=== PATIENT | male | born 1930 | race Caucasian/White ===

== ENCOUNTER 2017-01-10 12:06 | Inpatient (IN) | payer MEDICARE, OTHER ==
[2017-01-10] VITALS (11 sets, daily range): BP systolic 101–129; BP diastolic 44–72; PULSE 72–107; RESP 16–44; O2SAT 93–100
[~2017-01-10] VITALS: Ht 175.3 cm; Wt 89.5 kg
[~2017-01-10 12:06] MED LIST: ALB083NB3 INH; ALBUTEROL8GMHFA PO; ALLO100T PO; ASA325 PO; CARV12.5 PO; CLAR10T PO; FLUT12AE6 IH; GLIPIZIDE PO; LEVO750T9 PO; LOP600 PO; OMEG100020 PO; OMEP20TA86 PO; PRAV80TA PO; PRE10 PO; TAMS0.4C29 PO; TIOT18CA INH; TRAVOS OU; UBID1CAP52 PO; ZES5 PO; [UNRECOGNIZED DRUG - CODE] OD
[2017-01-10] MEDS ORDERED: Albuterol 2.5 mg/3 mL Inhalation Solution NEB ONE ×2 (12:25→13:10)
[2017-01-10] MEDS ORDERED: MethylprednisoLONE Sodium Succinate 62.5 mg/mL 2 mL Inj IVPUSH ONE (12:25)
[2017-01-10] MEDS ORDERED: Ipratropium 0.02% 0.5 mg/2.5 mL Inhalation Solution NEB ONE (12:25)
--- NOTE | 2017-01-10 12:29 | ED.REPORT ---
HPI-Dyspnea / Wheezing Date of Service Jan 10, 2017 ED Provider: Jay Emanuel MD This is an 86 year old male with a history of HTN, DM, CABG presenting to the emergency department complaining of cough that began 2 days ago. Reports progressively worsening productive cough with clear sputum that is associated with worsening shortness of breath and back pain. He denies lower extremity swelling, chest pain, fever, chills, diaphoresis, nausea, or vomiting. Pt stopped taking doxazosin yesterday. Nursing Notes Stated Complaint: CONGESTION,HARD TO BREATH Chief Complaint: Respiratory Distress Nursing Notes Reviewed: Yes ([employer], [employer] not reconciled) Allergies: Coded Allergies: No Known Allergies (Verified , 01/10/17) Scheduled Albuterol-Expunged Drug, Do Not Renew! (Albuterol-Expunged Drug, Do Not Renew!) 90 Mcg Puff 2 PUFF PO Q2HP Albuterol-Expunged Drug, Do Not Renew! (Albuterol-Expunged Drug, Do Not Renew!) 2.5 Mg/3 Ml Nebu 3 ML INH Q4H Allopurinol-Expunged Drug, Do Not Renew! (Allopurinol-Expunged Drug, Do Not Renew!) 100 Mg Tablet 100 MG PO BID Aspirin-Expunged Drug, Do Not Renew! (Aspirin-Expunged Drug, Do Not Renew!) 325 Mg Tablet 325 MG PO DAILY Carvedilol-Expunged Drug, Do Not Renew! (Carvedilol-Expunged Drug, Do Not Renew! ) 12.5 Mg Tablet 12.5 MG PO BID Dorzolamide-Expunged Drug, Do Not Renew! (Trusopt 2%-Expunged Drug, Do Not Renew !) 10 Ml Bottle 1 DROP OD BID RIGHT EYE Flutic/Salmet-Expunged Drug, Do Not Renew! (Advair 230/21-Expunged Drug, Do Not Renew!) 12 Gm Aer.w.adap 12 GM IH PRN Gemfibrozil-Expunged Drug, Do Not Renew! (Lopid-Expunged Drug, Do Not Renew!) 600 Mg Tablet 600 MG PO DAILY Levofloxacin-Expunged Drug, Do Not Renew! (Levaquin-Expunged Drug, Do Not Renew! ) 750 Mg Tablet 750 MG PO DAILY Lisinopril-Expunged Drug, Do Not Renew! (Lisinopril-Expunged Drug, Do Not Renew! ) 5 Mg Tablet 2.5 MG PO BID Loratadine-Expunged Drug, Do Not Renew! (Loratadine-Expunged Drug, Do Not Renew! ) 10 Mg Tablet 10 MG PO DAILY [place]-3/Dha/Epa/Fish Oil-Expunged Drug, Do No (Fish Oil 1,000 Mg-Expunged Drug, Do Not Renew) 1 Each Capsule.dr 1 EACH PO DAILY Omeprazole-Expunged Drug, Do Not Renew! (Omeprazole-Expunged Drug, Do Not Renew! ) 20 Mg Tablet.dr 20 MG PO BID Pravastatin -Expunged Drug, Do Not Renew! (Pravachol-Expunged Drug, Do Not Renew !) 80 Mg Tablet 80 MG PO HS PredniSONE-Expunged Drug, Do Not Renew! (PredniSONE-Expunged Drug, Do Not Renew! ) 10 Mg Tab 10-40 MG PO DAILY TAKE WITH FOOD. Take 40mg by mouth daily for 3 days, then 20mg by mouth for 3 days, then 10mg by mouth daily for 2 days then stop. Tamsulosin-Expunged Drug, Do Not Renew! (Tamsulosin-Expunged Drug, Do Not Renew! ) 0.4 Mg Cap.sr.24h 0.4 MG PO BID Tiotropium Br-Expunged Drug, Do Not Renew! (Spiriva-Expunged Drug, Do Not Renew! ) 18 Mcg/Puff Pack 1 PUFF INH DAILY INHALE 1 CAPSULE Travoprost-Expunged Drug, Do Not Renew! (Travatan 0.004%-Expunged Drug, Do Not Renew!) 2.5 Ml Drops 1 GTT OU DAILY Ubidecarenone/Vit E Acetate (Co Q-10 100 Mg Softgel) 1 Each Capsule 1 EACH PO BID glipiZIDE-Expunged Drug, Do Not Renew! (glipiZIDE-Expunged Drug, Do Not Renew!) 5 Mg Tablet 2.5 MG PO BID General Time Seen by MD: 12:19 Chief Complaint Shortness of breath Hx Obtained From: Patient Arrived By: Walk-in Sudden in Onset?: Yes Onset Occurred: 2 days ago Symptom Duration: Since onset Severity: Current: No pain currently Pertinent Negative: Pt denies other symptoms Recent Healthcare: No recent doctor visit, No recent hospitalization Similar Sx Previous: No Risk Factors CAD Risk Stratification Diabetes mellitus Hypertension Risk factors reviewed Past Medical History Past Medical History History of coronary artery disease, inferior [place] 1986 and subsequent failed emergent PCI History of lung cancer diagnosis. 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 Neurologic: Denies: Dizziness, Headache, Lightheaded, Numbness Physical Exam Initial Vital Signs Vital Signs (First) Date Time Temp Pulse Resp B/P Pulse Ox O2 Delivery O2 Flow Rate FiO2 01/10/17 12:09 36.4 107 44 101/62 93 Room Air 01/10/17 13:15 35 01/10/17 13:57 2 Initial VS: Reviewed, Vital signs abnormal Head / Eyes: Atraumatic, Normocephalic, PERRL ENT: Mucous membranes moist, Conjunctiva normal, No scleral icterus Abdomen / GI: Soft, Non-tender, No guarding, No rebound, No distention Skin: Warm, Dry Neurologic: Alert, Oriented, Nonfocal Psychiatric: Mood/affect normal, Behavior normal, Normal thought content General/Constitutional: Awake, Alert Slightly cyanotic Neck: Atraumatic, Supple, No meningismus, Full range of motion, No swelling, Non-tender, No masses Resp Distress / Stridor: Positive: Resp distress moderate Diminished Breath Sounds: Positive: Decreased L Wheezing / Retractions: Positive: Wheeze insp/exp diffuse Cardiovascular: Heart rate NL, Regular rhythm, Heart sounds NL, Peripheral circulation NL Interpretation & Diagnostics VENOUS BLOOD GAS REPORT pH 7.353 pCO2 50 indicative of mild hypercapnia (new c/w prior gas) pO2 21.7 cHCO3 27.2 cBase 1.3 Lab Results Interpretation Result Diagram: 01/10/17 1310 01/10/17 1310 Test 01/10/17 12:25 01/10/17 13:10 Urine Color Yellow (YELLOW) Urine Appearance Hazy (CLEAR,HAZY) Urine pH 5.5 (5.0-8.0) Urine Specific [place] 1.025 (1.003-1.035) Urine Protein 30mg/dL (NEG,TRACE) Urine Glucose (UA) Negativemg/dL (NEGATIVE) Urine Ketones Negativemg/dL (NEGATIVE) Urine Occult Blood Large (NEGATIVE) Urine Nitrite Negative (NEGATIVE) Urine Bilirubin Negative (NEGATIVE) Urine Urobilinogen Normalmg/dL (NORMAL) Urine Leukocyte Esterase Trace (NEGATIVE) Urine RBC 3-10/hpf (0-2) Urine WBC 0-5/hpf (0-5) Urine Epithelial Cells None/hpf (NONE-MOD) Urine Crystals None seen (NONE SEEN) Urine Bacteria Few/hpf (NONE-FEW) Urine Hyaline Casts None/lpf (NONE) Urine Granular Casts None seen (NONE SEEN) Urine Waxy Casts None seen (NONE SEEN) Urine Red Blood Cell Casts None seen (NONE SEEN) Urine White Blood Cell Casts None seen (NONE SEEN) Urine Mucus None seen (None Seen) Urine Trichomonas None seen (NONE SEEN) Urine Yeast None (NONE SEEN) Urinalysis Comment None Urine Culture Reflexed Indicated White Blood Count 8.4th/mm3 (3.8-10.1) Red Blood Count 4.49mil/mm3 (4.40-5.80) Hemoglobin 13.9g/dL (13.8-17.2) Hematocrit 42.5% (41.0-50.0) Mean Corpuscular Volume 94.7fL (81-100) Mean Corpuscular Hemoglobin 31.0pg (27.0-35.0) Mean Corpuscular Hemoglobin Concent 32.7% (32.0-37.0) Red Cell Distribution Width 12.7% (12.3-15.4) Platelet Count 171bil/L (150-400) Neutrophils (%) (Auto) 82.6% (40-74) Lymphocytes (%) (Auto) 8.1% (14-46) Monocytes (%) (Auto) 8.7% (4-12) Eosinophils (%) (Auto) 0.4% (0-5) Basophils (%) (Auto) 0.1% (0-3) Prothrombin Time 11.4sec (8.1-12.5) Prothromb Time International Ratio 1.06ratio D-Dimer 1.0mg/L (<0.50) Sodium Level 136mEq/L (134-144) Potassium Level 4.6mEq/L (3.5-5.2) Chloride Level 98mEq/L (97-108) Carbon Dioxide Level 23mmol/L (18-29) Blood Urea Nitrogen 24mg/dL (8-27) Creatinine 1.35mg/dL (0.76-1.27) Estimat Glomerular Filtration Rate 53mL/min (>59) Glucose Level 190mg/dL (60-99) Lactic Acid Level 1.0mmol/L (0.4-2.0) Calcium Level 9.1mg/dL (8.5-10.1) Magnesium Level 1.7mg/dL (1.6-2.6) Total Bilirubin 0.6mg/dL (0.0-1.2) Aspartate Amino Transf (AST/SGOT) 16U/L (0-50) Alanine Aminotransferase (ALT/SGPT) 13U/L (0-44) Alkaline Phosphatase 78U/L (25-160) Troponin T < 0.010ug/L (0.0-0.011) Pro-B-Type Natriuretic Peptide 933.7pg/mL (0-486) Total Protein 7.3g/dL (6.4-8.4) Albumin 3.4g/dL (3.4-5.0) Lab Results Interpretation: C normal CMP mild renal insufficiency Troponin negative D-dimer marginally elevated, Dr. Walton normal ECG Interpretation ECG Interpretation: EKG demonstrates a sinus tachycardia at a rate of 103, there are Q waves present inferiorly that are present and unchanged from an EKG dated March 2014, there is a right bundle branch block, morphology unchanged from 2013 Time: 12:32 Interpreted by: ED physician X-Ray Chest Interpretation Chest Xray Interpretation: IMPRESSION: Stable post surgical changes related to left pneumonectomy. Dictated by: Eduin Mustafa M.D. on 01/10/2017 at 13:33 Approved by: Eduin Mustafa M.D. on 01/10/2017 at 13:38 Re-Eval/Medical Decision Med Decision/Clinical Course This is an 86-year-old with COPD, prior history of heart disease and lung cancer and ex heavy smoker presents with acute shortness of breath. He describes respiratory symptoms over the past 3 days including increasing cough and worsening shortness of breath. He arrives quite dyspneic with audible bronchospasm and decreased air movement with a respiratory rate in the 40s. He is not Febrile, he is not hypoxic. The patient received albuterol, Atrovent and steroids but remained dyspneic. A venous blood gas revealed a CO2 of 50, increased from his previous gas in the 30s-the patient's to breathing the 40s-70s then started on BiPAP, received additional albuterol and Atrovent, and made marked improvement with air movement , and work of breathing. He responded so well he asked to have discontinued, and this was done as a hospitalist or interviewing the patient. Chest x-ray is negative for jaime infiltrate, blood work is unrevealing as far. The patient does have marginally elevated d-dimer, but we are unable to obtain a antecubital IV. An ultrasound of both legs is negative for DVT, and in the meantime the patient responded to therapy with nebulizers. His clinical history this argues strongly for COPD exacerbation, his response to therapy argues strongly against for COPD exacerbation and I think that makes PE unlikely. Patient is being admitted for continued management. The patient also self caths, satting recent Muir discontinued, but given his level dyspnea and request for cath-a Muir is at least temporarily been placed. Urine is pending Source of Hx: Old records Re-Evaluation/Progress #1: Time of Eval: 12:55 )( Re-Eval Resp / Chest: Moderate wheezing Re-Evaluation/Progress Note: Flank discomfort is persistent Re-Evaluation/Progress #2: Time of Eval: 14:01 Re-Evaluation/Progress Note: Improved with BIPAP, discussed plan for admission, all questions addressed Re-Evaluation/Progress #3: Time of Eval: 15:00 Re-Evaluation/Progress Note: Much improved, distress resolved, we will trial off BiPAP Airmovement also improved Consultation : Referral / Consult Name: Sofia Brown MD Consulted With: Hospitalist Call Returned at: 14:09 Director Of Software Engineering: Accepts admit Differential Diagnosis: Positive: COPD exacerbation, Negative: Acute coronary syndrome, Dysrhythmia, Hyperventilation, Pericarditis, Pneumonia, Pneumothorax, Pulmonary embolism Counseled Regarding: Diagnosis, Lab results, Need for follow-up, Need for admission Discharge & Departure Impression: Primary Impression: COPD exacerbation Disposition: ADMITTED TO HOSPITAL Discharge Condition All VS Reviewed: Yes Condition: Stable Referrals: Collins Call MD (PCP) Crit Care Except Billable Proc Time Spent: 30-74 minutes Services Performed: Patient management by me, Time spent at bedside, Reviewing test results, Reviewing imaging, Discussing patient care, Documentation in record, Time with fam/surrogate Scribe Attestation Portions of this note were transcribed by Margarita Schafer. I, Dr. Emanuel personally performed the history, physical exam and medical decision-making; I reviewed and confirmed the accuracy of the information in the transcribed note. Signed by: Margarita Schafer. 01/10/2017, 15:00. Jay Emanuel MD Jan 10, 2017 12:29 MARGARITA SCHAFER Jan 10, 2017 12:37
--- NOTE | 2017-01-10 13:21 | ABG ---
DateTimeAnalyzed 13:17:00 -_ pH ____7.353 - pCO2 ___50.2__ -mmHg pO2 ___21.7__ -mmHg HCO3- ___27.2__ -mmol/L ABE ____1.3__ -mmol/L tHb ___14.3__ -g/dL O2Hb ___35.1__ -% COHb ____1.5__ -% MetHb ____1.0__ -% sO2 ___36.0__ -% FIO2 ___28.0__ -% Drawn By jmw - Date/Time Notified____ 13:20:00 -_ Spontaneous_RR ___27.0__ -b/min Liter_Flow ____2.0__ -L/min Oxygen Device 1 NASAL CANULA - Notified By JMW - Notified Whom DR ALEJANDRA - B 765 -mmHg tO2 ____7.0__ -Vol% Miguel test N/A -
[2017-01-10 13:32] LABS: BASOPHILS % (AUTO) 0.1 % (0-3); EOSINOPHILS % (AUTO) 0.4 % (0-5); MONOCYTES % (AUTO) 8.7 % (4-12); Mean Corpuscular Volume 94.7 fL (81-100); NEUTROPHILS % (AUTO) 82.6 % (40-74); Platelet Count 171 bil/L (150-400)
[2017-01-10 13:40] LABS: INR 1.06 ratio
--- NOTE | 2017-01-10 13:40 | DRSVH ---
PROCEDURE: X-RAY CHEST ONE VIEW, PORTABLE ([id number]) INDICATIONS: Shortness of breath TECHNIQUE: One view of the chest was acquired. COMPARISON: [facility], CR, CHEST 2VW, 01/11/2013, 7:50. [facility], CT, PE STUDY ( CTA CHEST), 04/19/2008, 10:58. [facility], CR, CHEST 1VW (PORTABLE), 01/10/2013, 10:55. FINDINGS: Surgical changes and devices: Sternotomy and left pneumonectomy. Lungs and pleura: Left pneumonectomy changes are stable. Right lung is clear. No pleural effusions o r pneumothorax. Mediastinum: Mediastinal contours appear normal. Heart size is normal. Bones and chest wall: No suspicious bony lesions. Overlying soft tissues appear unremarkable. IMPRESSION: Stable post surgical changes related to left pneumonectomy. Dictated by: Eduin Mustafa M.D. on 01/10/2017 at 13:33 Approved by: Eduin Mustafa M.D. on 01/10/2017 at 13:38
[2017-01-10] MEDS ORDERED: Lidocaine 2% 5 mL Urojet Topical Jelly Syringe TOPICAL ONE ×2 (13:45→14:00)
[2017-01-10 13:50] LABS: TROPONIN T < 0.010 ug/L (0.0-0.011)
[2017-01-10 13:59] LABS: Magnesium 1.7 mg/dL (1.6-2.6)
[2017-01-10] MEDS ORDERED: Lidocaine 2% 6mL Topical Jelly TOPICAL ONE (14:05)
[2017-01-10 14:57] LABS: APPEARANCE,URINE HAZY (CLEAR,HAZY); COLOR,URINE YELLOW (YELLOW); OCCULT BLOOD,URINE LARGE (NEGATIVE); PH,URINE 5.5 (5.0-8.0); UROBILINOGEN,URINE NORMAL (NORMAL)
[2017-01-10] MEDS ORDERED: Polyethylene Glycol (PEG) 17 Gm Powder PO PRN (15:10)
[2017-01-10] MEDS ORDERED: Alum-Mag Hydrox-Simeth 30 mL Suspension PO PRN (15:10)
[2017-01-10] MEDS ORDERED: Ondansetron 2 mg/mL 2 mL Inj IVPUSH PRN (15:10)
--- NOTE | 2017-01-10 15:26 | PCM.HPMED ---
Subjective Date of Service Jan 10, 2017 Primary Provider: Admitting Physician: Primary Care Physician: Collins Call MD Attending Physician: Admit Status: From the Emergency Department Chief Complaint: Shortness of breath History of Present Illness: He began to note shortness of breath or couple years ago which has steadily worsened. he says last night was a "bad night" and he was quite short of breath. He has also been having postnasal drip and switch pills in the throat and has difficulty coughing up. He is increased cough especially at night, sometimes productive for clear sputum. He feels he might have had some chilling last night but not aware of fever and no sweats. No chest pain. Not aware of any Pedal edema. Review of Systems: He did note some right flank pain earlier today might be related to the heart bed. He has been having difficulty with urinary retention. He saw his urologist 2 days ago moved his Muir catheter is been doing self caths. Here in the Emergency department a Muir catheter has already been placed. He has not noted any dysuria. Review of systems otherwise unremarkable. Allergies Coded Allergies: No Known Allergies (Verified , 01/10/17) Home Medications he has a list of his medications with names and doses but does not say any time to use that for some of the medications. As best I can tell he is on the following: Glipizide 10 mg possibly twice daily Losartan 25 mg daily Plavix 75 mg daily Coreg 12.5 mg twice a day Recently on Alfuzosin instead of Flomax but advised to discontinue it as of today Lantus 70 units at bedtime Allopurinol 100 mg, not sure if once or twice daily Loratadine 10 mg daily, possibly when necessary Omeprazole 20 mg, unclear if once or twice daily Proventil inhaler when necessary often twice daily Albuterol Nebulizer when necessary, often every evening Spiriva one inhalation daily Fish oil 1000 mg daily. CoQ10 100 mg twice a day Travatan eyedrops 0.04%. both eyes each evening Trusopt 2% eyedrops 1 drop in the right eye bid Aspirin 325 mg daily Advair discus 250/50 twice a day Gemfibrozil 600 mg, half tablet twice a day Pravastatin 80 mg daily PMH 1. Coronary artery disease with an inferior [place] in 1986 for which he underwent emergent PCI that failed. He says he also had an IA in the spring and then had 2 vessel CABG in August 2002 Echocardiogram in 2013 showed akinesis of the inferior wall and ejection fraction 55-60%, right ventricle was mild to moderately dilated and right ventricular function mild to moderately reduced 2. lung Cancer in 2001 treated with left pneumonectomy 3. Diabetes mellitus 4. Hypertension 5. Chronic renal insufficiency 6. COPD 7. Peripheral vascular disease, status post right carotid endarterectomy, left femoral bruit 8. Gout 9. Diverticulosis 10. Glaucoma 11. BPH Surgical History Two-vessel CABG in 2001 Left pneumonectomy 2001 Right cochlear implant Right carotid endarterectomy in 2008 tonsillectomy Bilateral cataract surgery Family History Regarding her 30s from diabetes complications of childbirth. Had a bypass in her 40s and his brother had a bypass in his 70s. 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 His friend Adele Walters has a general power of commercial real estate attorney for him but not his healthcare POA although she would like to have this. Exam Vital Signs Vital Sign - Last Date Time Temp Pulse Resp B/P Pulse Ox O2 Delivery O2 Flow Rate FiO2 01/10/17 14:09 88 16 100 BiPAP 35 01/10/17 13:57 2 01/10/17 13:39 101/44 01/10/17 12:09 36.4 Exam General: Alert and oriented, hard of hearing, appears somewhat dyspneic but able to speak full sentences. ED staff report he is much improved HEENT: Unremarkable other than his right pupil is larger than the left Neck: Thick but no apparent JVD Heart: Regular but distant heart tones Lungs: Showed low pitched respiratory and expiratory wheeze, mildly prolonged expiration, few scattered coarse rhonchi Abdomen: Soft, non-tender, active bowel tones, but somewhat distended and tympanitic Extremities: Trace pedal edema Neuro: Hand dispatcher tugboat strong and equal and able to lift legs off the bed against resistance Lab and Diagnostics Result Diagram: 01/10/17 1310 01/10/17 1310 Assessment & Plan # Acute SOB, appears most likely due to COPD exacerbation but may also have some mild CHF (systolic vs diastolic vs right sided) as he has trace pedal edema and some elevation of BNP but CXR negative. No evidence of acute cardiac ischemia. - duonebs and solumedrol - oxygen as needed, back to bipap prn - no infiltrate on CXR but will rx po doxycycline - one dose IV lasix, repeat labs in am - echo tomorrow - leg venous ultrasound pending (D dimer borderline) # Urinary retention - Urologist had just removed a Muir catheter approximately 2 days ago and he was doing self straight cath, it was replaced in the ED - Had been placed on Alfuzosin instead Flomax but felt he was having a reaction to it and was told to discontinue it, last dose yesterday - UA today does not show clear evidence of infection but a culture has been sent # Diabetes mellitus, type II - Continue his glipizide - Monitor glucoscans and sliding scale lispro if needed # Hypertension and coronary artery disease - Continue Coreg, losartan, aspirin and Plavix # Hyper lipidemia - Continue gemfibrozil and pravastatin # Glaucoma - Continue eyedrop medication # History of gout - Continue allopurinol although he is not sure if he is taking it once a day or twice a day Sofia Brown MD Jan 10, 2017 15:26
[2017-01-10] MEDS ORDERED: Glucose 40% Oral Gel 15 Gm Tube PO PRN (15:30)
[2017-01-10] MEDS ORDERED: Furosemide 10 mg/mL 4 mL Inj IVPUSH ONE (15:30)
--- NOTE | 2017-01-10 15:32 | DRSVH ---
PROCEDURE: US VENOUS LEG DUPLEX BILATERAL INDICATIONS: ro DVT TECHNIQUE: Real-time imaging, as well as color and pulse Doppler interrogation, were performed of the deep veins of both legs from the inguinal ligament to the popliteal fossa. COMPARISON: None. FINDINGS: The deep veins are normally compressible, and free of intraluminal thrombus. Color and pu lse Doppler demonstrate normal phasic intravascular flow. There is normal augmentation response to d istal compression maneuver. IMPRESSION: No DVT in lower extremities. Dictated by: Eduin Mustafa M.D. on 01/10/2017 at 15:29 Approved by: Eduin Mustafa M.D. on 01/10/2017 at 15:30
[2017-01-10] MEDS: Albuterol-Ipratropium 3 mL Inhalation Solution NEB SCH ×2 (16:30→20:30)
--- NOTE | 2017-01-10 17:01 | NUR ---
Admit from ER Patient arrived to unit 1640. Report received from Er nurse. Blood sugar 248. friend at bed side.
[2017-01-10] MEDS: MethylprednisoLONE Sodium Succinate 40 mg/mL Inj IVPUSH SCH (17:17)
[2017-01-10] MEDS ORDERED: GLIP10TA10 PO (17:39)
[2017-01-10] MEDS ORDERED: CHOL100043 PO (17:39)
[2017-01-10] MEDS ORDERED: FLUT1DIS5 IH (17:42)
[2017-01-10] MEDS ORDERED: ALFU10TA11 PO (17:45)
[2017-01-10] MEDS ORDERED: LOSA25TA21 PO (17:46)
[2017-01-10] MEDS ORDERED: UBID100C27 PO (18:10)
[2017-01-10] MEDS ORDERED: LORA10CA PO (18:12)
[2017-01-10] MEDS ORDERED: ASPI325T32 PO (18:13)
[2017-01-10] MEDS ORDERED: ZYL100 PO (18:14)
[2017-01-10] MEDS ORDERED: CARV12.5 PO (18:17)
[2017-01-10] MEDS ORDERED: ALBU0.63 INHALATION (18:22)
[2017-01-10] MEDS ORDERED: ALBU90AE IH (18:24)
[2017-01-10] MEDS ORDERED: GEMF600T PO (18:25)
[2017-01-10] MEDS ORDERED: OMEG-38 PO (18:27)
[2017-01-10] MEDS ORDERED: OMEP20CA11 PO (18:28)
[2017-01-10] MEDS ORDERED: PRAV80TA2 PO (18:29)
[2017-01-10] MEDS ORDERED: TIOT18CA3 IH (18:30)
[2017-01-10] MEDS: Insulin LISPRO 300 Unit/3 mL Inj SUBQ SCH ×2 (18:34→22:32)
--- NOTE | 2017-01-10 18:35 | NUR ---
Mentation Patient is alert and oriented X3. Able to make needs known. blood sugar 248, Insulin given as ordered. stable vital signs. denies pain or discomfort. Muir placed in the ER and patent, draining dark urine. patient eating at bed side and states," i am hungry." bilateral bruising bilateral arms. call light with in reach for safety. SBA for transfers. intermittent coughing noted. lung sounds clear at the bases. stable mood. Friend at bed side. continue to monitor pain, respiratory status, oxygen, vital signs and safety.
[2017-01-11] VITALS (12 sets, daily range): BP systolic 104–117; BP diastolic 51–62; PULSE 63–79; RESP 18–22; O2SAT 94–98
[2017-01-11] MEDS: Albuterol-Ipratropium 3 mL Inhalation Solution NEB SCH ×6 (00:30→19:32)
[2017-01-11] MEDS: MethylprednisoLONE Sodium Succinate 40 mg/mL Inj IVPUSH SCH ×3 (02:52→17:34)
--- NOTE | 2017-01-11 07:54 | NUR ---
Medication Reconciliation/BGs Pt's medication reconciliation and admission was not completed on dayshift 01/10/2017. I was able to complete the admission but unable to complete the medication reconciliation. Oncoming RN is aware and has the pt's medication list. The only things missing from the pt's home med list are eye drops for glaucoma, Flonase as PRN, and Lantus. The Lantus on the home med list says that the pt takes 100Units of Lantus. If pharmacy does not have the eye drops the pt has a friend who might be able to bring them from home. Pt's HS BG was 398 and pt was given 4 units of Lispro.
[2017-01-11] MEDS: Omega-3 Fatty Acids 1,000 mg Capsule PO SCH (08:30)
[2017-01-11] MEDS: Pantoprazole 20 mg ER24 Tablet PO SCH ×2 (09:31→21:40)
[2017-01-11] MEDS: Insulin LISPRO 300 Unit/3 mL Inj SUBQ SCH ×3 (09:32→21:44)
[2017-01-11] MEDS: Tiotropium 18mcg/Cap 5 Capsule Inhaler Kit INHALATION SCH (09:33)
[2017-01-11] MEDS: Fluticasone-Salmeterol 500-50 Inhaler INHALATION SCH (09:33)
[2017-01-11] MEDS: HYDROcodone-APAP 5-325 mg Tablet PO PRN ×2 (10:17→11:02)
[2017-01-11] MEDS ORDERED: Insulin LISPRO 300 Unit/3 mL Inj SUBQ ONE (12:00)
--- NOTE | 2017-01-11 15:49 | NUR ---
Social Work Note: Initial Assessment Data& Assessment: EMR reviewed. SW met with pt at bedside to discuss discharge planning, SW role explained. Nakul Carpenter is a 86 year old male admitted on 01/10/2017 for COPD and respiratory failure. Pt has Medicare and [facility] Supplemental insurance coverage. Pt sees Dr. Call for primary care but [facility] all [facility]. Pt lives in [place] alone but has been staying with his friend Adele Walters and her in [place] recently. Pt drives and does not use any DME at baseline. Pt is currently requiring oxygen but normally only uses a nebulizer at night. Pt does not have HH or SNF hx. Pt does not have LTC insurance or [facility] service connection. Pt provided with DPOA paperwork to review and complete when possible. Pt denies any needs at this time. SW to continue to follow for MD and PT evaluation and recommendations. Plan: Anticipated discharge home with home health vs. SNF pending PT and MD evaluation and recommendations. Pt denies any needs at this time. SW to continue to follow for MD and PT evaluation and recommendations. TAISHA Nichole Addendum: 01/11/17 at 1553 by BONNIE MCNAMARA Amended: Links added.
--- NOTE | 2017-01-11 16:44 | DRSVH ---
[facility] [address] [place] [address] Echocardiogram Report Name: SIMI EDWARDS LStudy Date : 01/11/2017 Height: 69 in Hospital Exam Location: [facility] Weight: 198 lb Gender: Male BSA: 2.1 m2 : 1930 Age: 86 yrs BP: 109/56 mmHg Reason For Study: COPD Ordering Physician: Performed By: Alisa Anaya Referring Physician: Collins Call Interpretation Summary The left ventricle is normal in size. The ejection fraction is estimated to be 50-55%. Wall motion abnormalities as described above. Borderline right ventricular enlargement. Right ventricular systolic function is mildly reduced. Aside from age-related calcific changes, valvular structure and function are within normal limits. There is no pericardial effusion. Compared to the previous study on 01/11/2013, no significant change is noted. Procedure: A two-dimensional transthoracic echocardiogram with color flow and Doppler was performed. The study quality was technically difficult. Comparison is made with the echocardiogram of 01-11-13. Echo images were limited due the patients left lung removal. The patient was in normal sinus rhythm during the exam. Left Ventricle: The left ventricle is normal in size. Left ventricular wall thickness is borderline increased. The ejection fraction is estimated to be 50-55%. There is basal inferior wall akinesis. There is mid inferior wall akinesis. This is unchanged compared to the previous study. Right Ventricle: Borderline right ventricular enlargement. Right ventricular systolic function is mildly reduced. There has been no significant change since the previous study. Atria: The left atrium is mildly dilated. Mitral Valve: The mitral valve leaflets appear borderline thickened, but open well. There is mild mitral annular calcification. There is no mitral regurgitation noted. Aortic Valve: The aortic valve is mildly calcified. The aortic valve opens well. No aortic regurgitation is present. Tricuspid Valve: The tricuspid valve leaflets are thin and pliable. There is trace tricuspid regurgitation. Pulmonic Valve: The pulmonic valve is not well seen, but is grossly normal. Great Vessels: The aortic root is normal size. The inferior vena cava was not visualized. Pericardium/ Pleura There is no pericardial effusion. There is no pleural effusion. MMode/2D Measurements & Calculations LA dimension: 4.6 cm AoV Openin.5 cm Doppler Measurements & Calculations Ao V2 max MV E max edilson MV E/A: 0.84 TR max edilson : 128.2 cm/sec : 93.9 cm/sec : 240.6 cm/sec Ao max PG MV A max edilson TR max PG : 6.6 mmHg : 111.2 cm/sec : 23.2 mmHg Ao mean PG MV P1/2t: 69.4 msec : 3.6 mmHg MV dec time MV P1/2t max edilson Ao V2 mean : 0.24 sec : 88.1 cm/sec Ao V2 VTI MVA(P1/2t): 3.2 cm2 : 28.7 cm Reading Physician:04:44 PM
--- NOTE | 2017-01-11 18:25 | NUR ---
Tele/Muir/Respiratory No reports of chest pain/pressure/discomfort. Tele SR 60s-80s with IVCD and PACs. No reports of SOB/dizziness. SPO2 on 3LNC mid to high 90s. No reports of n/v/d/c or abdominal pain. Umir placed in ED, patent and draining yellow urine to gravity. Tolerating PO intake well. Patient is alert and oriented x3, BERRIOS, reports full sensation, mild/moderate decrease r/t SOB with movement --up in chair this AM, tolerated well.
--- NOTE | 2017-01-11 18:27 | NUR ---
Blood Glucose Patient originally on low dose algorithm -- changed to high dose (BG high 300s-mid 400s throughout shift -- receiving IV methylprednisolone). Administered 12 units with lunch and dinner. BG trending down.
--- NOTE | 2017-01-11 20:09 | PCM.PNMED ---
Subjective Date of Service Jan 11, 2017 Subjective overnight: No acute events overnight Today: Patient states that his breathing much better and he attributes this to the medication since been started on. The patient states that he has no family but that he has a friend who has power of ip technology transactions attorney. The patient denies any ongoing fevers or chills. He states it is a severe runny nose and cough which is worse when lying down on his back but okay if he lies on his side at night. Exam Vital Signs Vital Sign - Last Date Time Temp Pulse Resp B/P Pulse Ox O2 Delivery O2 Flow Rate FiO2 01/11/17 03:15 36.5 67 20 109/56 97 Nasal Cannula 3.00 01/10/17 14:09 35 Intake and Output 01/10/17 01/10/17 01/11/17 Cumulative From/Thru 15:00 23:00 07:00 01/10/17 12:09 - 01/11/17 06:26 Intake Total 500 ml 500 ml Output Total 1400 ml 1400 ml Balance -900 ml -900 ml Intake Oral 500 ml 500 ml Output Urine Total 1400 ml 1400 ml Exam General: Alert and oriented, hard of hearing, appears somewhat dyspneic but able to speak full sentences. Eyes: Pupils with anisocoria right larger than left, anicteric sclera noninjected conjunctiva HENT: Normocephalic atraumatic, moist mucous membranes, postnasal drip without cobblestoning mucosa or tonsillar exudate Neck: Thick but no apparent JVD, trachea midline no thyromegaly Heart: Regular rate and rhythm distant heart tones but no appreciable murmurs rubs or gallops noted Lungs: Mild Inspiratory and expiratory wheeze, mildly prolonged expiration, few scattered coarse breath sounds on right decreased breath sounds on left consistent with pneumonectomy Abdomen: Soft, non-tender, active bowel tones, tympanitic to percussion no organomegaly Extremities: No edema cyanosis or clubbing pulses intact in radial and dorsalis pedis Neuro: No focal neurologic deficits Psych: Normal mood and affect : Muir in place Lab and Diagnostics Result Diagram: 01/10/17 1310 01/11/17 0230 X-Rays, CTs and MRIs PROCEDURE: X-RAY CHEST ONE VIEW, PORTABLE ([id number]) IMPRESSION: Stable post surgical changes related to left pneumonectomy. Dictated by: Eduin Mustafa M.D. on 01/10/2017 at 13:33 Approved by: Eduin Mustafa M.D. on 01/10/2017 at 13:38 Additional Diagnostics PROCEDURE: US VENOUS LEG DUPLEX BILATERAL IMPRESSION: No DVT in lower extremities. Dictated by: Eduin Mustafa M.D. on 01/10/2017 at 15:29 Approved by: Eduin Mustafa M.D. on 01/10/2017 at 15:30 Echocardiogram Report Interpretation Summary The left ventricle is normal in size. The ejection fraction is estimated to be 50-55%. Wall motion abnormalities as described above. Borderline right ventricular enlargement. Right ventricular systolic function is mildly reduced. Aside from age-related calcific changes, valvular structure and function are within normal limits. There is no pericardial effusion. Compared to the previous study on 01/11/2013, no significant change is noted. Reading Physician:04:44 PM Assessment & Plan 86-year-old male with past medical history remarkable for coronary artery disease with CABG 2 in 2001, COPD with left pneumonectomy for non-small cell lung cancer, presents with several days of worsening shortness of breath. Hospital day 1 1 Acute COPD exacerbation, present on admission, improving - appears most likely due to COPD exacerbation was likely CHF (systolic vs diastolic vs right sided) as he has trace pedal edema and some elevation of BNP but CXR negative. No evidence of acute cardiac ischemia. - duonebs scheduled and albuterol nebs when necessary - solumedrol 60 every 8 converted to prednisone 40 daily for 5 days total - oxygen as needed, back to bipap prn - continue doxycycline and initiate IV ceftriaxone given gram-negative bacteremia for coverage of gram-positive gram-negative and atypical coverage - no infiltrate on CXR - one dose IV lasix given information - echo shows good left ejection fraction with mild decreased right ventricular output - leg venous ultrasound negative for d-dimer 2. Gram-negative bacteremia, acute, present on admission, being treated - Likely urinary or less likely GI tract as primary infection continue for evaluation - Urinary culture pending 3 Urinary retention, chronic, present on admission, stable - Urologist had just removed a Muir catheter approximately 2 days ago and he was doing self straight cath, it was replaced in the ED - Had been placed on Alfuzosin instead Flomax but felt he was having a reaction to it and was told to discontinue it, last dose yesterday - Given gram-negative ursula bacteremia UA today does not show clear evidence of infection but a culture has been sent 4 Diabetes mellitus, type II, chronic present on admission, - continue glipizide and consider switch to glimepiride at discharge - A1c ordered - High dose scale lispro if needed - Consider basal dose Lantus off today's insulin requirements 5 coronary artery disease, chronic, present on admission, stable - Continue outpatient aspirin and Plavix therapy 6 Hypertensionm chronic present on admission stable - Continue outpatient Coreg and losartan 7 Hyperlipidemia, present on admission, chronic stable - Continue gemfibrozil and pravastatin 8 Glaucoma, present on admission, chronic stable - Continue eyedrop medication 9 History of gout, present on admission, chronic stable - Continue allopurinol although he is not sure if he is taking it once a day or twice a day DVT prophylaxis with subcutaneous heparin Bowel regimen available when necessary Disposition: Patient will need good social work follow-up given discharged to home without any caregivers. Should obtain new POLST form prior to discharge and discussed patient having delineated healthcare power of ip technology transactions attorney. Pain Evaluation: Adequate Pain Control GI Prophylaxis: Not indicated VTE Prophylaxis: Sub-Q Enoxaparin Resuscitation Status: DNR/DNI:Do Not Resuscitate/Intubate Limited Interventions: BiPAP, Medications and IV Fluid Attending Statement The patient was seen and examined together with Dr. Victoria on 01/11/2017 and I agree with the history, exam and plan as outlined in the note above. . Michael Victoria DO Jan 11, 2017 07:48 Hbuer Ying MD Jan 15, 2017 07:38
[2017-01-11] MEDS ORDERED: 0.9% Sodium Chloride 250 ML ONE (21:29)
[2017-01-11] MEDS: cefTRIAXone Inj 1,000 MG in Dextrose 5% Minibag Plus 50 ML IV SCH (21:42)
[2017-01-12] VITALS (12 sets, daily range): BP systolic 102–146; BP diastolic 58–82; PULSE 67–81; RESP 18–24; O2SAT 94–97
[2017-01-12] MEDS: Albuterol-Ipratropium 3 mL Inhalation Solution NEB SCH ×6 (00:12→20:44)
[2017-01-12] MEDS: Insulin LISPRO 300 Unit/3 mL Inj SUBQ SCH ×5 (03:07→22:38)
[2017-01-12 03:08] LABS: BASOPHILS % (AUTO) 0 % (0-3); EOSINOPHILS % (AUTO) 0 % (0-5); MONOCYTES % (AUTO) 4.5 % (4-12); Mean Corpuscular Hemoglobin 31.5 pg (27.0-35.0); Mean Corpuscular Volume 93.4 fL (81-100); NEUTROPHILS % (AUTO) 90.6 % (40-74); Platelet Count 198 bil/L (150-400)
--- NOTE | 2017-01-12 03:41 | NUR ---
RESPIRATORY/BG Patient continues to sound wheezy and coarse throughout. Q4 nebs ongoing. Patient denies feeling SOB. BG 332, 280 over night. Patient otherwise has been without complaint and slept well.
[2017-01-12] MEDS: Albuterol 2.5 mg/3 mL Inhalation Solution NEB PRN ×3 (09:01→17:20)
[2017-01-12] MEDS: cefTRIAXone Inj 1,000 MG in Dextrose 5% Minibag Plus 50 ML IV SCH ×2 (09:10→20:32)
[2017-01-12] MEDS: Tiotropium 18mcg/Cap 5 Capsule Inhaler Kit INHALATION SCH (09:25)
[2017-01-12] MEDS: Fluticasone-Salmeterol 500-50 Inhaler INHALATION SCH (09:25)
[2017-01-12] MEDS: predniSONE 20 mg Tablet PO SCH (09:26)
[2017-01-12] MEDS: Omega-3 Fatty Acids 1,000 mg Capsule PO SCH (09:27)
[2017-01-12] MEDS: Pantoprazole 20 mg ER24 Tablet PO SCH ×2 (09:27→20:32)
--- NOTE | 2017-01-12 11:26 | NUR ---
Evaluation completed. Please go to "Notes" then click on "Assessments and Notes" (bottom left corner of screen). Then select appropriate discipline tab on top of screen.
--- NOTE | 2017-01-12 19:55 | PCM.PNMED ---
Subjective Date of Service Jan 12, 2017 Subjective overnight: No acute events overnight Today: Patient states that his breathing is improved and he attributes his medications and he is on. The patient states that he needs to get out of the hospital tomorrow so that he can take care of business before a court hearing to have his roommate removed from his living arrangement. The patient states he had a good bowel movement and was able to get to the toilet without addition. Exam Vital Signs Vital Sign - Last Date Time Temp Pulse Resp B/P Pulse Ox O2 Delivery O2 Flow Rate FiO2 01/12/17 03:17 36.6 73 20 102/58 95 Nasal Cannula 1.00 01/10/17 14:09 35 Intake and Output 01/11/17 01/11/17 01/12/17 Cumulative From/Thru 15:00 23:00 07:00 01/10/17 12:09 - 01/12/17 06:13 Intake Total 840 ml 600 ml 1940 ml Output Total 750 ml 600 ml 2750 ml Balance 90 ml 0 ml -810 ml Intake Oral 840 ml 600 ml 1940 ml Output Urine Total 750 ml 600 ml 2750 ml Exam General: Alert and oriented, hard of hearing, appears mildly conversationally dyspneic but able to speak full sentences. Eyes: Pupils with anisocoria right larger than left, anicteric sclera mild injected conjunctiva HENT: Normocephalic atraumatic, moist mucous membranes, postnasal drip without cobblestoning mucosa or tonsillar exudate, mild rhinophyma with some telangiectasia Neck: Thick but no apparent JVD, trachea midline no thyromegaly Heart: Regular rate and rhythm distant heart tones but no appreciable murmurs rubs or gallops noted Lungs: mildly prolonged expiration, few scattered coarse breath sounds on right decreased breath sounds on left consistent with pneumonectomy, no wheezing noted Abdomen: Soft, non-tender, active bowel tones, tympanitic to percussion no organomegaly Extremities: No edema cyanosis or clubbing pulses intact in radial and dorsalis pedis Neuro: No focal neurologic deficits Psych: Normal mood and affect : Muir in place Lab and Diagnostics Result Diagram: 01/12/1724401/12/17244 X-Rays, CTs and MRIs PROCEDURE: X-RAY CHEST ONE VIEW, PORTABLE ([id number]) IMPRESSION: Stable post surgical changes related to left pneumonectomy. Dictated by: Eduin Mustafa M.D. on 01/10/2017 at 13:33 Approved by: Eduin Mustafa M.D. on 01/10/2017 at 13:38 Additional Diagnostics PROCEDURE: US VENOUS LEG DUPLEX BILATERAL IMPRESSION: No DVT in lower extremities. Dictated by: Eduin Mustafa M.D. on 01/10/2017 at 15:29 Approved by: Eduin Mustafa M.D. on 01/10/2017 at 15:30 Echocardiogram Report Interpretation Summary The left ventricle is normal in size. The ejection fraction is estimated to be 50-55%. Wall motion abnormalities as described above. Borderline right ventricular enlargement. Right ventricular systolic function is mildly reduced. Aside from age-related calcific changes, valvular structure and function are within normal limits. There is no pericardial effusion. Compared to the previous study on 01/11/2013, no significant change is noted. Reading Physician:04:44 PM Assessment & Plan 86-year-old male with past medical history remarkable for coronary artery disease with CABG 2 in 2001, COPD with left pneumonectomy for non-small cell lung cancer, presents with several days of worsening shortness of breath. Hospital day 2 1 Acute COPD exacerbation, present on admission, improving - appears most likely due to COPD exacerbation was likely CHF (systolic vs diastolic vs right sided) as he has trace pedal edema and some elevation of BNP but CXR negative. No evidence of acute cardiac ischemia. - duonebs scheduled and albuterol nebs when necessary - solumedrol 60 every 8 converted to prednisone 40 daily for 5 days total - oxygen as needed, back to bipap prn - continue doxycycline and initiate IV ceftriaxone given gram-negative bacteremia for coverage of gram-positive gram-negative and atypical coverage - no infiltrate on CXR - one dose IV lasix given information - echo shows good left ejection fraction with mild decreased right ventricular output - leg venous ultrasound negative for DVT - Continue to out patient Spiriva and Advair inhalers 2. Gram-negative bacteremia, acute, present on admission, being treated - Likely urinary or less likely GI tract as primary infection continue for evaluation - Urinary culture pending 3 Urinary retention, chronic, present on admission, stable - Urologist had just removed a Muir catheter approximately 2 days ago and he was doing self straight cath, it was replaced in the ED - Had been placed on Alfuzosin instead Flomax but felt he was having a reaction to it and was told to discontinue it, last dose yesterday - Given gram-negative ursula bacteremia UA today does not show clear evidence of infection but a culture has been sent 4 Diabetes mellitus, type II, chronic present on admission, - continue glipizide and consider switch to glimepiride at discharge - A1c 7.5 - High dose scale lispro - Initiated basal dose Lantus 10 units at night given last 2 days average of lispro 20 units given 5 coronary artery disease, chronic, present on admission, stable - Continue outpatient aspirin and Plavix therapy - Continue outpatient pravastatin 6 Hypertensionm chronic present on admission stable - Continue outpatient Coreg and losartan 7 Hyperlipidemia, present on admission, chronic stable - Continue gemfibrozil and pravastatin 8 Glaucoma, present on admission, chronic stable - Continue eyedrop medication 9 History of gout, present on admission, chronic stable - Continue allopurinol although he is not sure if he is taking it once a day or twice a day DVT prophylaxis with subcutaneous heparin Bowel regimen available when necessary Disposition: Patient will need good social work follow-up given discharged to home without any caregivers. Should obtain new POLST form prior to discharge and discussed patient having delineated healthcare power of real estate associate attorney. GI Prophylaxis: Not indicated VTE Prophylaxis: Sub-Q Enoxaparin Resuscitation Status: DNR/DNI:Do Not Resuscitate/Intubate Limited Interventions: BiPAP, Medications and IV Fluid Attending Statement The patient was seen and examined together with Dr. Victoria on 01/12/2017 and I agree with the history, exam and plan as outlined in the note above. . Michael Victoria DO Jan 12, 2017 08:05 Huber Ying MD Jan 15, 2017 07:38
[2017-01-12] MEDS: Insulin GLARgine 100 Unit/mL Syringe SUBQ SCH (22:36)
--- NOTE | 2017-01-12 23:17 | NUR ---
Blood sugar Blood sugar at 2200 was 326. Pt ate a late dinner. Covered with humalog and lantus. Pt aware that he will have a recheck of his blood sugar at 0200. Will cont to monitor
[2017-01-13] VITALS (13 sets, daily range): BP systolic 122–177; BP diastolic 58–83; PULSE 70–118; RESP 18–24; O2SAT 94–98
[2017-01-13] MEDS: Albuterol-Ipratropium 3 mL Inhalation Solution NEB SCH ×6 (00:22→19:39)
[2017-01-13 02:59] LABS: BASOPHILS % (AUTO) 0 % (0-3); EOSINOPHILS % (AUTO) 0 % (0-5); MONOCYTES % (AUTO) 5.9 % (4-12); Platelet Count 186 bil/L (150-400)
[2017-01-13] MEDS: Insulin LISPRO 300 Unit/3 mL Inj SUBQ SCH ×4 (09:05→21:34)
[2017-01-13] MEDS: Tiotropium 18mcg/Cap 5 Capsule Inhaler Kit INHALATION SCH (09:07)
[2017-01-13] MEDS: Fluticasone-Salmeterol 500-50 Inhaler INHALATION SCH (09:10)
[2017-01-13] MEDS: cefTRIAXone Inj 1,000 MG in Dextrose 5% Minibag Plus 50 ML IV SCH ×2 (09:10→20:38)
[2017-01-13] MEDS: Pantoprazole 20 mg ER24 Tablet PO SCH ×2 (09:11→21:29)
[2017-01-13] MEDS: predniSONE 20 mg Tablet PO SCH (09:12)
[2017-01-13] MEDS: Omega-3 Fatty Acids 1,000 mg Capsule PO SCH (09:19)
--- NOTE | 2017-01-13 17:14 | NUR ---
Respiratory- Patient denies shortness of breath. Room air Spo2> 92% Sitting up in chair most of the day. Muir catheter draining cloudy urine.
--- NOTE | 2017-01-13 20:12 | NUR ---
Transfer to [facility] Pt transferred to room 239. Report given to Aristides Worthy RN Pt transported via wheelchair. Tolerated activity All belongings sent including dentures, hearing aid and cell phone
--- NOTE | 2017-01-13 20:27 | NUR ---
Transfer Patient arrived via [facility]/C from [facility], report received from Becca Camacho RN orientated to room belongings @ bedside, currently no c/o, wanting to "find some westerns on TV"
--- NOTE | 2017-01-13 20:27 | PCM.PNMED ---
Subjective Date of Service Jan 13, 2017 Subjective overnight: No acute events noted Today: The patient understands that he will have his bacterial infection addressed by infectious disease started being discharged. Speaking with his DPOA Kassi the patient has had his [facility]rology and [facility] appointments scheduled for next week. Kassi can also stand him for his court case on Wednesday. Exam Vital Signs Vital Sign - Last Date Time Temp Pulse Resp B/P Pulse Ox O2 Delivery O2 Flow Rate FiO2 01/13/17 05:05 36.0 87 136/68 96 Room Air 01/13/17 01:45 24 01/13/17 00:22 1.00 01/10/17 14:09 35 Intake and Output 01/12/17 01/12/17 01/13/17 Cumulative From/Thru 15:00 23:00 07:00 01/10/17 12:09 - 01/13/17 05:05 Intake Total 808 ml 350 ml 3098 ml Output Total 900 ml 800 ml 4450 ml Balance -92 ml -450 ml -1352 ml Intake Oral 740 ml 350 ml 3030 ml IV Total 68 ml 68 ml Output Urine Total 900 ml 800 ml 4450 ml Emesis 0 ml 0 ml # Bowel Movements 2 2 Exam General: Alert and oriented, hard of hearing, appears mildly conversationally dyspneic but able to speak full sentences. Eyes: Pupils with anisocoria right larger than left, anicteric sclera non- injected conjunctiva HENT: Normocephalic atraumatic, moist mucous membranes, postnasal drip without cobblestoning mucosa or tonsillar exudate, mild rhinophyma with some telangiectasia Neck: Thick but no apparent JVD, trachea midline no thyromegaly Heart: Regular rate and rhythm distant heart tones but no appreciable murmurs rubs or gallops noted Lungs: mildly prolonged expiration, few scattered coarse breath sounds on right decreased breath sounds on left consistent with pneumonectomy, no wheezing noted Abdomen: Soft, non-tender, active bowel tones, tympanitic to percussion no organomegaly Extremities: No edema cyanosis or clubbing pulses intact in radial and dorsalis pedis Neuro: No focal neurologic deficits Psych: Normal mood and affect : Muir in place Lab and Diagnostics Result Diagram: 01/13/17 0240 01/13/17 0240 X-Rays, CTs and MRIs PROCEDURE: X-RAY CHEST ONE VIEW, PORTABLE ([id number]) IMPRESSION: Stable post surgical changes related to left pneumonectomy. Dictated by: Eduin Mustafa M.D. on 01/10/2017 at 13:33 Approved by: Eduin Mustafa M.D. on 01/10/2017 at 13:38 Additional Diagnostics PROCEDURE: US VENOUS LEG DUPLEX BILATERAL IMPRESSION: No DVT in lower extremities. Dictated by: Eduin Mustafa M.D. on 01/10/2017 at 15:29 Approved by: Eduin Mustafa M.D. on 01/10/2017 at 15:30 Echocardiogram Report Interpretation Summary The left ventricle is normal in size. The ejection fraction is estimated to be 50-55%. Wall motion abnormalities as described above. Borderline right ventricular enlargement. Right ventricular systolic function is mildly reduced. Aside from age-related calcific changes, valvular structure and function are within normal limits. There is no pericardial effusion. Compared to the previous study on 01/11/2013, no significant change is noted. Reading Physician:04:44 PM Assessment & Plan 86-year-old male with past medical history remarkable for coronary artery disease with CABG 2 in 2001, COPD with left pneumonectomy for non-small cell lung cancer, presents with several days of worsening shortness of breath. Hospital day 2 1 Acute COPD exacerbation, present on admission, improving - appears most likely due to COPD exacerbation was likely CHF (systolic vs diastolic vs right sided) as he has trace pedal edema and some elevation of BNP but CXR negative. No evidence of acute cardiac ischemia. - duonebs scheduled and albuterol nebs when necessary - solumedrol 60 every 8 converted to prednisone 40 daily for 5 days total - oxygen as needed, back to bipap prn - discontinue doxycycline and continue IV ceftriaxone given gram-negative bacteremia for coverage of gram-positive gram-negative and atypical coverage - no infiltrate on CXR - one dose IV lasix given information - echo shows good left ejection fraction with mild decreased right ventricular output - leg venous ultrasound negative for DVT - Continue to out patient Spiriva and Advair inhalers 2. Gram-negative bacteremia, acute, present on admission, being treated - Likely urinary or less likely GI tract as primary infection continue for evaluation - Urinary culture positive for Flavimonas - Sitter likely sources included indwelling Muir catheter as well as possible pneumonia given inhaled steroid use - Infectious disease consulted and will see patient tomorrow 3 Urinary retention, chronic, present on admission, stable - Urologist had just removed a Muir catheter approximately 2 days ago and he was doing self straight cath, it was replaced in the ED - Had been placed on Alfuzosin instead Flomax but felt he was having a reaction to it and was told to discontinue it, last dose yesterday - Given gram-negative ursula bacteremia UA today does not show clear evidence of infection but a culture has been sent - Patient will be seen by his urologist next week 4 Diabetes mellitus, type II, chronic present on admission, - continue glipizide and consider switch to glimepiride at discharge - A1c 7.5 - High dose scale lispro - Initiated basal dose Lantus 10 units at night given last 2 days average of lispro 20 units given 5 coronary artery disease, chronic, present on admission, stable - Continue outpatient aspirin and Plavix therapy - Continue outpatient pravastatin 6 Hypertensionm chronic present on admission stable - Continue outpatient Coreg and losartan 7 Hyperlipidemia, present on admission, chronic stable - Continue gemfibrozil and pravastatin 8 Glaucoma, present on admission, chronic stable - Continue eyedrop medication 9 History of gout, present on admission, chronic stable - Continue allopurinol although he is not sure if he is taking it once a day or twice a day DVT prophylaxis with subcutaneous heparin Bowel regimen available when necessary Disposition: Patient will need good social work follow-up given discharged to home without any caregivers. Should obtain new POLST form prior to discharge. Expect discharge home with the [facility] available Pain Evaluation: Adequate Pain Control GI Prophylaxis: Not indicated VTE Prophylaxis: Sub-Q Enoxaparin Resuscitation Status: DNR/DNI:Do Not Resuscitate/Intubate Limited Interventions: BiPAP, Medications and IV Fluid Attending Statement The patient was seen and examined together with Dr. Victoria on 01/13/2017 and I agree with the history, exam and plan as outlined in the note above. . Michael Victoria DO Jan 13, 2017 07:00 Huber Ying MD Jan 15, 2017 07:39
[2017-01-13] MEDS: Insulin GLARgine 100 Unit/mL Syringe SUBQ SCH (21:30)
[2017-01-14 01:25] VITALS: PULSE 84; RESP 18; O2SAT 98
[2017-01-14] MEDS: Albuterol-Ipratropium 3 mL Inhalation Solution NEB SCH ×5 (01:25→16:30)
[2017-01-14 06:09] VITALS: BP 129/67; PULSE 65; RESP 19; O2SAT 96
[2017-01-14] MEDS: Fluticasone-Salmeterol 500-50 Inhaler INHALATION SCH (07:46)
[2017-01-14] MEDS: Tiotropium 18mcg/Cap 5 Capsule Inhaler Kit INHALATION SCH (07:47)
[2017-01-14] MEDS: Pantoprazole 20 mg ER24 Tablet PO SCH (07:51)
[2017-01-14] MEDS: Omega-3 Fatty Acids 1,000 mg Capsule PO SCH (07:51)
[2017-01-14] MEDS: predniSONE 20 mg Tablet PO SCH (07:51)
[2017-01-14] MEDS: cefTRIAXone Inj 1,000 MG in Dextrose 5% Minibag Plus 50 ML IV SCH (07:54)
[2017-01-14 08:00] LABS: BASOPHILS % (AUTO) 0.2 % (0-3); EOSINOPHILS % (AUTO) 0.2 % (0-5); MONOCYTES % (AUTO) 10.9 % (4-12); Mean Corpuscular Hemoglobin 31.1 pg (27.0-35.0); Mean Corpuscular Volume 93.4 fL (81-100); NEUTROPHILS % (AUTO) 69.3 % (40-74); Platelet Count 154 bil/L (150-400)
[2017-01-14 08:17] VITALS: PULSE 66; RESP 16; O2SAT 95
[2017-01-14 09:01] VITALS: BP 157/80; PULSE 69; RESP 26; O2SAT 96
[2017-01-14] MEDS: Insulin LISPRO 300 Unit/3 mL Inj SUBQ SCH ×2 (09:11→12:50)
[2017-01-14] MEDS ORDERED: FLUT15.88 NS (11:53)
[2017-01-14] MEDS ORDERED: DORZ10DR RIGHT_EYE (11:53)
[2017-01-14] MEDS ORDERED: ASPI-973 PO (11:53)
[2017-01-14] MEDS ORDERED: CLOP75TA28 PO (11:53)
[2017-01-14] MEDS ORDERED: LATA2.5D6 BOTH_EYES (11:53)
[2017-01-14] MEDS ORDERED: INSU100V7 SUBQ (11:53)
[2017-01-14 13:31] VITALS: BP 115/70; RESP 20; O2SAT 94
[2017-01-14] MEDS ORDERED: predniSONE 20 mg Tablet PO ONE (15:45)
--- NOTE | 2017-01-14 15:57 | PCM.DIMED ---
Michael Victoria DO 01/14/17 1416: Discharge Instructions Date of Service Jan 14, 2017 Dates of Hospitalization Jan 10, 2017 at 16:22 Discharge Diagnosis Discharge Diagnosis 1 Acute COPD exacerbation 2 Gram-negative bacteremia with Flavimonas bacteria 3 Urinary retention 4 Diabetes mellitus 5 coronary artery disease 6 Hypertension 7 Hyperlipidemia 8 Glaucoma 9 History of gout Medication Instructions Please continue taking all of her current home medications as directed by her primary care provider. When you return to the hospital next time please consider bringing in a bag of your current medications so that we may have an accurate medication list given her multiple providers at both the [place] and [facility]. Test Results Microbiology REA CULTURE BLOOD Final 01/13/17-0720 Organism 1 FLAVIMONAS ORYZIHABITANS GRAM STAIN RESULT GRAM NEGATIVE RODS BC BOTTLE Isolated from Single Aerobic Bottle Drawn DATE CALLED: 01/11/17 TIME CALLED: [id number] CALLED BY: ABBEY FLOOR/DOCTOR: HA/STEVE CONN READ BACK YES TYPE OF DRAW NURSE COLLLECT TYPE NOT SPECIFIED TIME OF POSITIVITY 1247 FLAVIMONAS ORYZIHABITANS ISOLATED FROM ONE OF THREE BOTTLES COLLECTED 01/10 1. FLAVIMONAS ORYZIHABITANS M.I.C Interp --------- ------ * AMIKACIN <=2 S sensitive * AMPICILLIN/SULBACTAM 4 S sensitive * CEFTRIAXONE 4 S sensitive * CIPROFLOXACIN <=0.25 S sensitive * GENTAMICIN <=1 S sensitive * MEROPENEM <=0.25 S sensitive * TOBRAMYCIN <=1 S sensitive Diet Low fat, Low Sodium, Diabetic (please limit your carbohydrate intake) Activity No restrictions Call your provider Fever or Chills, Shortness of breath, Bleeding, Chest pain, Vomitting, Excessive diarrhea, Weakness (unilateral), Other (worsening cough) Patient Instructions You been seen by Dr. Khan who is an infectious disease specialist with years of experience and he believes that the bugs found in your blood is not going to cause an infection. He believes it is best to not continue antibiotics beyond your discharge from the hospital. Please continue your regular home medications as prescribed by her primary care physician. Your initial presentation of shortness of breath has been treated appropriately in the hospital and you will not require any further new medications after discharge. Follow-up plan Your DPOA Kassi Walters has scheduled appointments for you on January 17, 2017 with your urologist as well as your [facility] provider. Please keep these appointments so that you may discuss your recent hospitalization as well as general wellness and medication checks. Your urologist will likely need to see you to discuss removal of your indwelling Muir catheter, so it is very important to keep this appointment. Please follow-up with your outpatient primary care provider Dr. Call in 2 weeks for medication checks and general wellness to discuss this hospitalization. A copy of your records will be sent to her office including this new most accurate medication list so that she may evaluate your current medication. Follow-up Provider: Collins Call MD Follow-up with PCP in: 2 weeks Huber Ying MD 01/15/17 0740: Discharge Instructions Attending's Statement The patient was seen and examined together with Dr. Victoria on 01/14/2017 and I agree with the history, exam and plan as outlined in the note above. . Michael Victoria DO Jan 14, 2017 14:16 Huber Ying MD Jan 15, 2017 07:40
--- NOTE | 2017-01-14 16:50 | NUR ---
Discharge Pt discharged from unit with Kassi DAVIS. Pt already has a f/u appt with his urologist on 01/17. Pt given leg catheter bag. Provided with information on diagnoses, follow up, signs to watch for, how to prevent COPD exacerbations, and catheter care. Pt verbalizes understanding. Pt taken off floor in wheelchair with his belongings.
--- NOTE | 2017-01-14 17:23 | CONS ---
[address] [address] CONSULTATION REPORT PATIENT: SIMI EDWARDS : 1930 MR#: [id number] ADMIT: 01/10/2017 JOB ID: [id number] DATE OF SERVICE: 01/14/2017 INFECTIOUS DISEASE CONSULTATION: I thank Dr. Ying for this timely consult. REASON FOR CONSULTATION: Flavimonas bacteremia in a single blood culture HISTORY OF THE PRESENT ILLNESS: The patient is a complex 86-year-old gentleman who was admitted to this facility four days ago. He was admitted because he had been increasingly short of breath for several days. He reported that he was having some thin white sputum and an increased cough as well as just progressive dyspnea both with exertion and even at rest. He had some subtle chills before admission but just reports that primarily he was feeling cold all the time, and had no rigors. He specifically denies fevers, sweats, headache, sore throat or pleuritic chest pain. He was admitted and appropriate studies were done. He was started on ceftriaxone and doxycycline for a possible pulmonary infection and has improved substantially over his four days in the hospital. ID is consulted today because one blood culture out of four done on bottles done on admission has grown Flavimonas. The team is wondering if this is a true bacteremia or pseudobacteremia or how long it should be it should be treated. The patient has had a great deal of trouble with obstructive uropathy. He had a Muir catheter for a prolonged period. This was pulled last week. Instead he started doing in and out catheterizations by himself. He reports that during these catheterizations, he suffered no pain, and when he was able to void a bit spontaneously, there was no dysuria. He has no indwelling devices except for a stent in the carotid artery by his report. Does not have any pacer, prosthetic heart valves or joints that have been replaced. PAST MEDICAL HISTORY: 1. Coronary artery disease longstanding with multiple myocardial infarctions and stent placement. 2. Lung cancer in 2001 treated with complete left pneumonectomy. 3. Diabetes. 4. Hypertension. 5. COPD. 6. Chronic renal insufficiency. 7. Status post right carotid endarterectomy. 8. Diffuse peripheral vascular disease. 9. Gout. 10. Diverticulosis. 11. Glaucoma. 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 He rarely drinks alcohol and quit smoking way back in 1977. He currently lives with a roommate and has a couple who look in on him and help him out. His a year and a half ago. FAMILY HISTORY: Positive for diabetes and coronary artery disease in multiple relatives. REVIEW OF SYSTEMS: Was done. The patient this afternoon reports no headache or visual change. No trouble swallowing. No sore throat. He is much less short of breath than when he came in and feels dramatically improved. He does not have any chest pain at this point, either substernal nor pleuritic. He continues to cough up scant amounts of sputum. No abdominal pain, nausea, vomiting, or diarrhea. He currently has a Muir catheter that was reinstalled after his admission and the plan is for him to go home with that and follow up with urologist. No issues with his extremities. Remainder of the review of systems negative. PHYSICAL EXAMINATION: Reveals an afebrile gentleman, temperature 36.4, pulse 69, respiratory rate 20, blood pressure 115/70. He is sitting up in bed, speaking very comfortably in full sentences and saturating well on room air. Examination of the head: No trauma. Eyes without conjunctivitis or scleral icterus. Nose normal. Oral cavity: No thrush, pharyngitis, hairy leukoplakia or ulcerations. Neck is supple. Lungs are notable for absent breath sounds really on the left side and reasonably clear on the right with a few crackles at the base. Cardiac tones. Regular rate and rhythm. Abdomen is soft and nontender. He has a Muir catheter. No suprapubic tenderness. He has no cervical adenopathy. No inguinal adenopathy. His extremities are without any significant edema. There is no evidence for cellulitis and he does have well-perfused extremities. His neurologic examination: He has reasonable muscle strength throughout. Mental status is completely clear. Normal mood and affect. LABORATORIES: Include white count 5100, creatinine 40, platelet count 154,000. Creatinine 1.15 which is improved over admission when it was 1.42. Liver function tests are normal. Albumin 3.1. We have three procalcitonin levels which are absolutely 0. CRP not done. Urinalysis 0-5 white cells. One of four blood culture bottles from admission yielded Flavimonas oryzihabitans. Urine culture was negative. IMAGING: On admission included a chest x-ray, which showed that his right lung was clear and his left lung is missing, of course. A venous duplex study of the leg showed no DVT. IMPRESSION: I see no evidence for ongoing infection in this patient and doubt that the Flavimonas in his blood cultures was clinically significant. Flavimonas can be a real pathogen. It can be life-threatening, especially in people in the ICU, and it can cause sepsis and it also can be associated in a true bacteremic situation with indwelling hardware, central lines and other devices. This patient appears remarkably nontoxic and has been really quite stable since his admission. He has received four days or so of antibiotics for empiric treatment of a possible pneumonia though his chest x-ray was clear and his procalcitonin x3 was 0. The ceftriaxone as part of this regimen would have provided coverage for the Flavimonas had it been significant but I do not think that is the case. If worried about this Flavimonas in the blood, one could simply give three more days of oral Cipro to complete a seven day course of therapy for this probable pseudobacteremia. Overall I do not think this is necessary given that the patient is afebrile and looks very stable this afternoon. RECOMMENDATIONS: 1. No additional antibiotics are indicated here. 2. If one was overly concerned about the Flavimonas in the blood, which I am not at this point, one could just go ahead and give three more days of oral Cipro or levo to complete a seven day course as he has already had four days of ceftriaxone, but as noted above overall I think this is most likely a pseudobacteremia or contamination and we do not need to worry any further about this organism. Thank you very much for this consult. I will be signing off now. WINTER
--- NOTE | 2017-01-14 19:36 | PCM.PNMED ---
Subjective Date of Service Jan 14, 2017 Subjective Overnight: No acute events noted Today: New Polst form filled out with the DPOA Kassi Walters as well as patient just been included in the chart. Infectious disease saw patient and decided to discontinue antibiotics. Patient is ready to be discharged understands the plans. Exam Vital Signs Vital Sign - Last Date Time Temp Pulse Resp B/P Pulse Ox O2 Delivery O2 Flow Rate FiO2 01/14/17 06:09 36.4 65 19 129/67 96 Room Air 01/13/17 00:22 1.00 01/10/17 14:09 35 Intake and Output 01/13/17 01/13/17 01/14/17 Cumulative From/Thru 15:00 23:00 07:00 01/10/17 12:09 - 01/14/17 06:15 Intake Total 640 ml 370 ml 4108 ml Output Total 900 ml 1000 ml 6350 ml Balance -260 ml -630 ml -2242 ml Intake Oral 640 ml 320 ml 3990 ml IV Total 50 ml 118 ml Output Urine Total 900 ml 1000 ml 6350 ml Emesis 0 ml # Bowel Movements 1 0 3 Exam General: Alert and oriented, hard of hearing, appears mildly conversationally dyspneic but able to speak full sentences. Eyes: Pupils with anisocoria right larger than left, anicteric sclera non- injected conjunctiva HENT: Normocephalic atraumatic, moist mucous membranes, postnasal drip without cobblestoning mucosa or tonsillar exudate, mild rhinophyma with some telangiectasia Neck: Thick but no apparent JVD, trachea midline no thyromegaly Heart: Regular rate and rhythm distant heart tones but no appreciable murmurs rubs or gallops noted Lungs: mildly prolonged expiration, few scattered coarse breath sounds on right decreased breath sounds on left consistent with pneumonectomy, no wheezing noted Abdomen: Soft, non-tender, active bowel tones, tympanitic to percussion no organomegaly Extremities: No edema cyanosis or clubbing pulses intact in radial and dorsalis pedis Neuro: No focal neurologic deficits Psych: Normal mood and affect : Muir in place Lab and Diagnostics Result Diagram: 01/13/17 0240 01/13/17 0240 X-Rays, CTs and MRIs PROCEDURE: X-RAY CHEST ONE VIEW, PORTABLE ([id number]) IMPRESSION: Stable post surgical changes related to left pneumonectomy. Dictated by: Eduin Mustafa M.D. on 01/10/2017 at 13:33 Approved by: Eduin Mustafa M.D. on 01/10/2017 at 13:38 Additional Diagnostics PROCEDURE: US VENOUS LEG DUPLEX BILATERAL IMPRESSION: No DVT in lower extremities. Dictated by: Eduin Mustafa M.D. on 01/10/2017 at 15:29 Approved by: Eduin Mustafa M.D. on 01/10/2017 at 15:30 Echocardiogram Report Interpretation Summary The left ventricle is normal in size. The ejection fraction is estimated to be 50-55%. Wall motion abnormalities as described above. Borderline right ventricular enlargement. Right ventricular systolic function is mildly reduced. Aside from age-related calcific changes, valvular structure and function are within normal limits. There is no pericardial effusion. Compared to the previous study on 01/11/2013, no significant change is noted. Reading Physician:04:44 PM Assessment & Plan 86-year-old male with past medical history remarkable for coronary artery disease with CABG 2 in 2001, COPD with left pneumonectomy for non-small cell lung cancer, presents with several days of worsening shortness of breath. Hospital day 4 1 Acute COPD exacerbation, present on admission, improving - appears most likely due to COPD exacerbation was likely CHF (systolic vs diastolic vs right sided) as he has trace pedal edema and some elevation of BNP but CXR negative. No evidence of acute cardiac ischemia. - duonebs scheduled and albuterol nebs when necessary - solumedrol 60 every 8 converted to prednisone 40 daily for 4 days total with two doses of 40mg on last day to cover for the nearest recommended 5 day course , this was discussed with pharmacy prior - oxygen as needed, back to bipap prn - discontinue doxycycline and continue IV ceftriaxone given gram-negative bacteremia for coverage of gram-positive gram-negative and atypical coverage - no infiltrate on CXR - one dose IV lasix given information - echo shows good left ejection fraction with mild decreased right ventricular output - leg venous ultrasound negative for DVT - Continue to out patient Spiriva and Advair inhalers 2. Gram-negative bacteremia, acute, present on admission, being treated - Likely urinary or less likely GI tract as primary infection continue for evaluation - Urinary culture positive for Flavimonas - Sitter likely sources included indwelling Muir catheter as well as possible pneumonia given inhaled steroid use - Infectious disease consulted and believed patient is not infected will discontinue antibiotics at discharge 3 Urinary retention, chronic, present on admission, stable - Urologist had just removed a Muir catheter approximately 2 days ago and he was doing self straight cath, it was replaced in the ED - Had been placed on Alfuzosin instead Flomax but felt he was having a reaction to it and was told to discontinue it, last dose yesterday - Given gram-negative ursula bacteremia UA today does not show clear evidence of infection but a culture has been sent - Patient will be seen by his urologist next week 4 Diabetes mellitus, type II, chronic present on admission, - continue glipizide - A1c 7.5 - High dose scale lispro - Initiated basal dose Lantus 10 units at night given last 2 days average of lispro 20 units given 5 coronary artery disease, chronic, present on admission, stable - Continue outpatient aspirin and Plavix therapy - Continue outpatient pravastatin 6 Hypertensionm chronic present on admission stable - Continue outpatient Coreg and losartan 7 Hyperlipidemia, present on admission, chronic stable - Continue gemfibrozil and pravastatin 8 Glaucoma, present on admission, chronic stable - Continue eyedrop medication 9 History of gout, present on admission, chronic stable - Continue allopurinol although he is not sure if he is taking it once a day or twice a day DVT prophylaxis with subcutaneous heparin Bowel regimen available when necessary Disposition: Patient to be discharge home today with the [facility] available Pain Evaluation: Adequate Pain Control GI Prophylaxis: Not indicated VTE Prophylaxis: Sub-Q Enoxaparin Resuscitation Status: DNR/DNI:Do Not Resuscitate/Intubate Limited Interventions: BiPAP, Medications and IV Fluid Attending Statement The patient was seen and examined together with Dr. Victoria on 01/14/2017 and I agree with the history, exam and plan as outlined in the note above. . Michael Victoria DO Jan 14, 2017 07:59 Huber Ying MD Jan 15, 2017 07:39
--- NOTE | 2017-01-14 19:39 | PCM.DC.MED ---
Discharge Summary Date of Service Jan 14, 2017 Dates of Hospitalization Date of Hospital Admission Jan 10, 2017 at 16:22 Date of Discharge: Jan 14, 2017 Providers: Admitting Physician: Sofia Brown MD Primary Care Physician: Collins Call MD Attending Physician: Sofia Brown MD Diagnosis at Time of Discharge Diagnosis at Time of Discharge 1 Acute COPD exacerbation 2 Gram-negative bacteremia with Flavimonas bacteria 3 Urinary retention 4 Diabetes mellitus 5 coronary artery disease 6 Hypertension 7 Hyperlipidemia 8 Glaucoma 9 History of gout Consultations infectious disease Procedures XRay, CTs & MRIs PROCEDURE: X-RAY CHEST ONE VIEW, PORTABLE ([id number]) IMPRESSION: Stable post surgical changes related to left pneumonectomy. Dictated by: Eduin Mustafa M.D. on 01/10/2017 at 13:33 Approved by: Eduin Mustafa M.D. on 01/10/2017 at 13:38 Other Diagnostics PROCEDURE: US VENOUS LEG DUPLEX BILATERAL IMPRESSION: No DVT in lower extremities. Dictated by: Eduin Mustafa M.D. on 01/10/2017 at 15:29 Approved by: Eduin Mustafa M.D. on 01/10/2017 at 15:30 Echocardiogram Report Interpretation Summary The left ventricle is normal in size. The ejection fraction is estimated to be 50-55%. Wall motion abnormalities as described above. Borderline right ventricular enlargement. Right ventricular systolic function is mildly reduced. Aside from age-related calcific changes, valvular structure and function are within normal limits. There is no pericardial effusion. Compared to the previous study on 01/11/2013, no significant change is noted. Reading Physician:04:44 PM Brief History From the H&P of signed by Sofia Brown MD "He began to note shortness of breath or couple years ago which has steadily worsened. he says last night was a "bad night" and he was quite short of breath. He has also been having postnasal drip and switch pills in the throat and has difficulty coughing up. He is increased cough especially at night, sometimes productive for clear sputum. He feels he might have had some chilling last night but not aware of fever and no sweats. No chest pain. Not aware of any Pedal edema." Hospital Course 86-year-old male with past medical history remarkable for coronary artery disease with CABG 2 in 2001, COPD with left pneumonectomy for non-small cell lung cancer, presents with several days of worsening shortness of breath. Hospital day 4 1 Acute COPD exacerbation, present on admission, improving - appears most likely due to COPD exacerbation was likely CHF (systolic vs diastolic vs right sided) as he has trace pedal edema and some elevation of BNP but CXR negative. No evidence of acute cardiac ischemia. - duonebs scheduled and albuterol nebs when necessary - solumedrol 60 every 8 converted to prednisone 40 daily for 4 days total with two doses of 40mg on last day to cover for the nearest recommended 5 day course , this was discussed with pharmacy prior - oxygen as needed, back to bipap prn - discontinue doxycycline and continue IV ceftriaxone given gram-negative bacteremia for coverage of gram-positive gram-negative and atypical coverage - no infiltrate on CXR - one dose IV lasix given information - echo shows good left ejection fraction with mild decreased right ventricular output - leg venous ultrasound negative for DVT - Continue to out patient Spiriva and Advair inhalers 2. Gram-negative bacteremia, acute, present on admission, being treated - Likely urinary or less likely GI tract as primary infection continue for evaluation - Urinary culture positive for Flavimonas - Sitter likely sources included indwelling Muir catheter as well as possible pneumonia given inhaled steroid use - Infectious disease consulted and believed patient is not infected will discontinue antibiotics at discharge 3 Urinary retention, chronic, present on admission, stable - Urologist had just removed a Muir catheter approximately 2 days ago and he was doing self straight cath, it was replaced in the ED - Had been placed on Alfuzosin instead Flomax but felt he was having a reaction to it and was told to discontinue it, last dose yesterday - Given gram-negative ursula bacteremia UA today does not show clear evidence of infection but a culture has been sent - Patient will be seen by his urologist next week 4 Diabetes mellitus, type II, chronic present on admission, - continue glipizide - A1c 7.5 - High dose scale lispro - Initiated basal dose Lantus 10 units at night given last 2 days average of lispro 20 units given 5 coronary artery disease, chronic, present on admission, stable - Continue outpatient aspirin and Plavix therapy - Continue outpatient pravastatin 6 Hypertensionm chronic present on admission stable - Continue outpatient Coreg and losartan 7 Hyperlipidemia, present on admission, chronic stable - Continue gemfibrozil and pravastatin 8 Glaucoma, present on admission, chronic stable - Continue eyedrop medication 9 History of gout, present on admission, chronic stable - Continue allopurinol although he is not sure if he is taking it once a day or twice a day Exam Vital Signs (Last) Date Time Temp Pulse Resp B/P Pulse Ox O2 Delivery O2 Flow Rate FiO2 01/14/17 13:31 36.4 20 115/70 94 Room Air 01/14/17 09:01 69 01/13/17 00:22 1.00 01/10/17 14:09 35 Exam General: Alert and oriented, hard of hearing, appears mildly conversationally dyspneic but able to speak full sentences. Eyes: Pupils with anisocoria right larger than left, anicteric sclera non- injected conjunctiva HENT: Normocephalic atraumatic, moist mucous membranes, postnasal drip without cobblestoning mucosa or tonsillar exudate, mild rhinophyma with some telangiectasia Neck: Thick but no apparent JVD, trachea midline no thyromegaly Heart: Regular rate and rhythm distant heart tones but no appreciable murmurs rubs or gallops noted Lungs: mildly prolonged expiration, few scattered coarse breath sounds on right decreased breath sounds on left consistent with pneumonectomy, no wheezing noted Abdomen: Soft, non-tender, active bowel tones, tympanitic to percussion no organomegaly Extremities: No edema cyanosis or clubbing pulses intact in radial and dorsalis pedis Neuro: No focal neurologic deficits Psych: Normal mood and affect : Muir in place Test 01/10/17 12:25 01/10/17 13:10 01/11/17 02:30 01/14/17 07:30 Urine Color Yellow (YELLOW) Urine Appearance Hazy (CLEAR,HAZY) Urine pH 5.5 (5.0-8.0) Urine Specific Dodson 1.025 (1.003-1.035) Urine Protein 30mg/dL (NEG,TRACE) Urine Glucose (UA) Negativemg/dL (NEGATIVE) Urine Ketones Negativemg/dL (NEGATIVE) Urine Occult Blood Large (NEGATIVE) Urine Nitrite Negative (NEGATIVE) Urine Bilirubin Negative (NEGATIVE) Urine Urobilinogen Normalmg/dL (NORMAL) Urine Leukocyte Esterase Trace (NEGATIVE) Urine RBC 3-10/hpf (0-2) Urine WBC 0-5/hpf (0-5) Urine Epithelial Cells None/hpf (NONE-MOD) Urine Crystals None seen (NONE SEEN) Urine Bacteria Few/hpf (NONE-FEW) Urine Hyaline Casts None/lpf (NONE) Urine Granular Casts None seen (NONE SEEN) Urine Waxy Casts None seen (NONE SEEN) Urine Red Blood Cell Casts None seen (NONE SEEN) Urine White Blood Cell Casts None seen (NONE SEEN) Urine Mucus None seen (None Seen) Urine Trichomonas None seen (NONE SEEN) Urine Yeast None (NONE SEEN) Urinalysis Comment None Urine Culture Reflexed Indicated Prothrombin Time 11.4sec (8.1-12.5) Prothromb Time International Ratio 1.06ratio D-Dimer 1.0mg/L (<0.50) Lactic Acid Level 1.0mmol/L (0.4-2.0) Magnesium Level 1.7mg/dL (1.6-2.6) Troponin T < 0.010ug/L (0.0-0.011) Pro-B-Type Natriuretic Peptide 933.7pg/mL (0-486) Hemoglobin A1c 7.5% (4.8-5.6) Thyroid Stimulating Hormone (TSH) 0.699uIU/mL (0.450-4.500) White Blood Count 5.1th/mm3 (3.8-10.1) Red Blood Count 4.25mil/mm3 (4.40-5.80) Hemoglobin 13.2g/dL (13.8-17.2) Hematocrit 39.7% (41.0-50.0) Mean Corpuscular Volume 93.4fL (81-100) Mean Corpuscular Hemoglobin 31.1pg (27.0-35.0) Mean Corpuscular Hemoglobin Concent 33.2% (32.0-37.0) Red Cell Distribution Width 12.1% (12.3-15.4) Platelet Count 154bil/L (150-400) Neutrophils (%) (Auto) 69.3% (40-74) Lymphocytes (%) (Auto) 18.4% (14-46) Monocytes (%) (Auto) 10.9% (4-12) Eosinophils (%) (Auto) 0.2% (0-5) Basophils (%) (Auto) 0.2% (0-3) Sodium Level 139mEq/L (134-144) Potassium Level 4.4mEq/L (3.5-5.2) Chloride Level 102mEq/L (97-108) Carbon Dioxide Level 25mmol/L (18-29) Blood Urea Nitrogen 32mg/dL (8-27) Creatinine 1.15mg/dL (0.76-1.27) Estimat Glomerular Filtration Rate 64mL/min (>59) Glucose Level 272mg/dL (60-99) Calcium Level 8.7mg/dL (8.5-10.1) Total Bilirubin 0.2mg/dL (0.0-1.2) Aspartate Amino Transf (AST/SGOT) 18U/L (0-50) Alanine Aminotransferase (ALT/SGPT) 18U/L (0-44) Alkaline Phosphatase 65U/L (25-160) Total Protein 5.6g/dL (6.4-8.4) Albumin 3.1g/dL (3.4-5.0) Procalcitonin 0.03ng/mL (0.00-0.08) Microbiology Results Microbiology REA CULTURE BLOOD Final 01/13/17-0720 Organism 1 JOSE EONAS JOLLY GRAM STAIN RESULT GRAM NEGATIVE RODS FLAVIMONAS MIRTAS 1. FLAVIMONAS MIRTAS M.I.C Interp --------- ------ * AMIKACIN <=2 S * AMPICILLIN/SULBACTAM 4 S * CEFTRIAXONE 4 S * CIPROFLOXACIN <=0.25 S * GENTAMICIN <=1 S * MEROPENEM <=0.25 S * TOBRAMYCIN <=1 S Discharge Medications Discharge Medications Albuterol Sulfate (Proair Respiclick) 90 Mcg Aer.pow.ba 90 MCG IH DAILY ( Reported) Alfuzosin ER (Alfuzosin ER) 10 Mg Tab.er.24h 10 MG PO DAILY (Reported) Allopurinol (Allopurinol) 100 Mg Tablet 100 MG PO BID (Reported) Aspirin (Aspirin) 81 Mg Tablet 81 MG PO DAILY (Reported) Carvedilol (Coreg) 12.5 Mg Tablet 12.5 MG PO BID (Reported) Cholecalciferol (Vitamin D3) (Vitamin D) 1,000 Unit Tablet 1,000 UNIT PO DAILY ( Reported) Clopidogrel (Clopidogrel) 75 Mg Tablet 75 MG PO DAILY (Reported) Dorzolamide HCl (Trusopt) 10 Ml Drops 1 GTT RIGHT_EYE BID (Reported) Fluticasone Propionate (Fluticasone Propionate) 50 Mcg/Actuation Irma.susp 15.8 ML NS DAILY (Reported) Fluticasone/Salmeterol (Advair 500-50 Diskus) 1 Each Disk.w.dev 1 PUFF IH DAILY (Reported) Gemfibrozil (Lopid) 600 Mg Tablet 600 MG PO BID (Reported) Glipizide (Glipizide) 10 Mg Tablet 10 MG PO BID (Reported) Insulin Glargine (Lantus U100 Insulin Vial) 100 Unit/Ml Vial 7 UNIT SUBQ HS ( Reported) Latanoprost (Latanoprost) 2.5 Ml Drops 1 GTT BOTH_EYES HS (Reported) Loratadine (Claritin) 10 Mg Capsule 10 MG PO DAILY (Reported) Losartan Potassium (Losartan Potassium) 25 Mg Tablet 25 MG PO DAILY (Reported) Edwards-3/Dha/Epa/Fish Oil (Fish Oil 1,000 mg Softgel) 1 Each Capsule 1 EACH PO DAILY (Reported) Omeprazole (Omeprazole) 20 Mg Capsule.dr 20 MG PO DAILY (Reported) Pravastatin (Pravastatin) 80 Mg Tablet 80 MG PO HS (Reported) Tiotropium [place] (Spiriva) 18 Mcg Cap.w.dev 18 MCG IH DAILY (Reported) Ubidecarenone (Co Q10) 100 Mg Capsule 100 MG PO BID (Reported) As needed Albuterol Neb Soln (Albuterol Neb Soln) 0.63 Mg/3 Ml Vial.neb 0.63 MG INHALATION HS PRN PRN For Wheezing (Reported) Additional med instructions Please continue taking all of her current home medications as directed by her primary care provider. When you return to the hospital next time please consider bringing in a bag of your current medications so that we may have an accurate medication list given her multiple providers at both the [facility] and [facility]. Followup Plan Disposition: home Follow-up plan Your DPOA Kassi Walters has scheduled appointments for you on January 17, 2017 with your urologist as well as [facility]. Please keep these appointments so that you may discuss your recent hospitalization as well as general wellness and medication checks. Your urologist will likely need to see you to discuss removal of your indwelling Muir catheter, so it is very important to keep this appointment. Please follow-up with your outpatient primary care provider Dr. Call in 2 weeks for medication checks and general wellness to discuss this hospitalization. A copy of your records will be sent to her office including this new most accurate medication list so that she may evaluate your current medication. Discharge Diet: Low fat, Low Sodium, Diabetic (please limit your carbohydrate intake) Discharge Activity: No restrictions Patient Instructions You been seen by Dr. Khan who is an infectious disease specialist with years of experience and he believes that the bugs found in your blood is not going to cause an infection. He believes it is best to not continue antibiotics beyond your discharge from the hospital. Please continue your regular home medications as prescribed by her primary care physician. Your initial presentation of shortness of breath has been treated appropriately in the hospital and you will not require any further new medications after discharge. Follow-up Provider: Collins Call MD Follow-up with PCP in: 2 weeks Time spent Greater than 30 minutes was spent in preparation of discharge with greater than 50% of that time dedicated to patient counseling and coordination of care. . Attending Statement The patient was seen and examined together with Dr. Victoria on 01/14/2017 and I agree with the history, exam and plan as outlined in the note above. . copies to: Collins Call MD, Nicholas K DO Jan 14, 2017 19:39 Huber Ying MD Jan 15, 2017 07:41
== END 2017-01-14 16:55 | disposition home or self-care (01) | DRG 191 ==
LOC: SED 12:06 → PCC 16:22 → MOC 01-13 20:15
PROVIDERS: ADMIT Internal Medicine; ATTEND Internal Medicine
PROC: 4A033R1 Measurement of Arterial Saturation, Peripheral, Percutaneous Approach (ICD-10-PCS; principal; 2017-01-10)
DX: J44.1 Chronic obstructive pulmonary disease with (acute) exacerbation (principal); R78.81 Bacteremia; Z95.1 Presence of aortocoronary bypass graft; Z79.82 Long term (current) use of aspirin; Z79.84 Long term (current) use of oral hypoglycemic drugs; Z79.4 Long term (current) use of insulin; Z79.02 Long term (current) use of antithrombotics/antiplatelets; I25.2 Old myocardial infarction; Z87.891 Personal history of nicotine dependence; Z85.118 Personal history of other malignant neoplasm of bronchus and lung; R33.9 Retention of urine, unspecified; E11.9 Type 2 diabetes mellitus without complications; I10 Essential (primary) hypertension; I25.10 Atherosclerotic heart disease of native coronary artery without angina pectoris; E78.5 Hyperlipidemia, unspecified; H40.9 Unspecified glaucoma; M10.9 Gout, unspecified; Z66 Do not resuscitate